=== PATIENT | female | born 1985 | race Caucasian/White ===

== ENCOUNTER 2021-04-28 11:01 | Emergency (ER) | payer OTHER ==
[2021-04-28 11:21] LABS: HEMOGLOBIN 11.7 gm/dl (12.3-15.3); RED BLOOD COUNT 4.47 M/UL (4.00-5.10); WHITE BLOOD COUNT 4.4 K/UL (4.5-11.0)
[2021-04-28 12:00] LABS: BUN/CREATININE RATIO 16 (0-10)
[2021-04-28] MEDS ORDERED: PROTONIX40 MG PO (13:51)
[2021-04-28] MEDS ORDERED: K-DUR TAB 10 M10 MEQ PO (13:51)
== END 2021-04-28 15:18 | disposition home or self-care (01) ==
LOC: ER1 11:01
PROVIDERS: Physician Assistant
DX: R11.10 Vomiting, unspecified (principal); E87.6 Hypokalemia; N64.9 Disorder of breast, unspecified; F17.210 Nicotine dependence, cigarettes, uncomplicated; Z88.5 Allergy status to narcotic agent; Z20.822 Contact with and (suspected) exposure to COVID-19
CPT/HCPCS: 71045; 71260; 80053; 82550; 82553; 83874; 84484; 84703; 85025; 85610; 96374; 96375; 99284; C9113; G0480; J2060; J2405; J7030; Q9967; U0002